=== PATIENT | male | born 1985 | race Caucasian/White ===

== ENCOUNTER 2019-03-18 15:18 | Emergency (ER) | payer BC, OTHER ==
[~2019-03-18] VITALS: Ht 185.4 cm; Wt 102.1 kg
--- NOTE | 2019-03-18 16:37 | Diagnostic Imaging Report ---
Exam: KUB - 2 views Indication: Foreign body Comparison: None Findings: There is a rectosigmoid foreign body consistent with a vibrator. Nonobstructive bowel gas pattern. No free air. The osseous structures appear unremarkable. Impression: Rectosigmoid foreign body as above. No free air. Signed by: Kaylen Avendaño MD on 03/18/2019 4:34 PM
== END 2019-03-18 17:31 | disposition home or self-care (01) ==
LOC: ER 15:18
DX: T18.5XXA Foreign body in anus and rectum, initial encounter (principal)
CPT/HCPCS: 74019; 99283